=== PATIENT | male | born 1985 | race Caucasian/White ===

== ENCOUNTER → 2016-09-28 08:27 | Outpatient (CLI) | payer BC ==
[2016-04-11 09:02] VITALS: BMI 28.6
[~2016-09-28 08:27] MED LIST: HYDROCODONE-APA1 TAB PO
== END | disposition home or self-care (01) ==
LOC: D.CT 08:27
DX: S06.0X0A Concussion without loss of consciousness, initial encounter (principal)

== ENCOUNTER → 2016-10-17 15:09 | Outpatient (CLI) | payer BC ==
[2016-04-11 09:02] VITALS: BMI 28.6
== END | disposition home or self-care (01) ==
LOC: D.MRI 10-13 14:00
DX: M54.12 Radiculopathy, cervical region (principal)

== ENCOUNTER → 2016-10-19 15:41 | Outpatient (CLI) | payer BC ==
[2016-04-11 09:02] VITALS: BMI 28.6
== END | disposition home or self-care (01) ==
LOC: D.MRI 15:41
DX: R51 Headache (principal)

== ENCOUNTER 2018-10-30 16:27 | Emergency (ER) | payer BC ==
[~2018-10-30] VITALS: Ht 167.6 cm; Wt 86.4 kg
[2018-10-30 16:41] VITALS: Ht 167.6 cm; Wt 86.4 kg
[2018-10-30] MEDS ORDERED: ROBAXIN500 MG PO (19:05)
[2018-10-30 20:05] VITALS: BP 149/79
== END 2018-10-30 20:11 | disposition home or self-care (01) ==
LOC: D.ER 16:27
DX: M54.5 Low back pain (principal); V43.52XA Car driver injured in collision with other type car in traffic accident, initial encounter; Y93.89 Activity, other specified; Y92.410 Unspecified street and highway as the place of occurrence of the external cause

== ENCOUNTER → 2018-11-22 11:11 | Outpatient (CLI) | payer BC ==
[2018-10-30 16:41] VITALS: BMI 30.7
[~2018-11-22 11:11] MED LIST changes: +ROBAXIN500 MG PO
== END | disposition home or self-care (01) ==
LOC: D.MRI 11:11
PROVIDERS: ATTEND Family Medicine
DX: S06.0X0D Concussion without loss of consciousness, subsequent encounter (principal); X58.XXXA Exposure to other specified factors, initial encounter

== ENCOUNTER → 2019-04-24 10:30 | Outpatient (CLI) | payer BC ==
[2018-10-30 16:41] VITALS: BMI 30.7
== END | disposition home or self-care (01) ==
LOC: D.MRI 10:30
PROVIDERS: ATTEND Family Medicine
DX: S40.012D Contusion of left shoulder, subsequent encounter (principal); X58.XXXA Exposure to other specified factors, initial encounter